=== PATIENT | male | born 1965 | race Caucasian/White ===

== ENCOUNTER 2024-10-02 07:29 | Inpatient (IN) | payer BC ==
[~2024-10-02] VITALS: Ht 170.2 cm; Wt 81.8 kg
[2024-10-02] VITALS (64 sets, daily range): BP systolic 31–144; BP diastolic 15–112; PULSE 90–130; RESP 23–51; TEMP 36–37.8; O2SAT 42–88
[2024-10-02] MEDS ORDERED: VANCOMYCIN 1G PREMIX 200 ML IV ONE (07:45)
[2024-10-02] MEDS: HEPARIN 5000 UNITS/ML VIAL IV ONE (07:58)
[2024-10-02] MEDS: SODIUM CHLORIDE 0.9% (SEPSIS BOLUS) IV ONE (08:05)
[2024-10-02] MEDS: PIPERACILLIN/TAZO 3.375G/50ML 50 ML IV ONE (08:05)
[2024-10-02] MEDS ORDERED: ONDANSETRON HCL 4MG TABLET PO ONE (08:15)
[2024-10-02 08:18] LABS: BASOPHILS % 0.4 % (0.0-2.0); HEMATOCRIT. 42.4 % (42.0-52.0); HEMOGLOBIN. 13.6 g/dL (14.0-18.0); LYMPHOCYTES % 16.2 % (20.0-50.0); MEAN CORPUSCULAR HEMOGLOBIN 29.2 pg (28.0-32.0); MEAN CORPUSCULAR HGB CONC 32.1 g/dL (31.0-37.0); MEAN PLATELET VOLUME 7.6 fl (7.4-10.4); MONOCYTES % 8.5 % (2.0-8.0); NEUTROPHILS % 73.9 % (40.0-76.0); PLATELET 293 x1000/uL (130-400); RED BLOOD CELL COUNT 4.67 mill/uL (4.7-6.1); RED CELL DISTRIBUTION WIDTH 14.5 % (11.6-14.6); WHITE BLOOD COUNT 13.8 x1000/uL (4.5-11.0)
[2024-10-02 08:42] LABS: CHLORIDE 109 mEq/L (98-107); POTASSIUM 3.8 mEq/L (3.5-5.1); SODIUM 139 mEq/L (136-145)
[2024-10-02 08:43] LABS: CALCIUM 8.7 mg/dL (8.7-10.4); CARBON DIOXIDE 19 mEq/L (21-32)
[2024-10-02] MEDS: ONDANSETRON HCL 4MG/2ML INJ IV ONE (08:44)
[2024-10-02 08:48] LABS: CREATININE 1.1 mg/dL (0.6-1.3); GLUCOSE 168 mg/dL (70-105); UREA NITROGEN BLOOD 15 mg/dL (9-23)
[2024-10-02 08:52] LABS: LACTIC ACID 3.6 mmol/L (0.4-2.0)
[2024-10-02 08:53] LABS: TROPONIN I HIGH SENSITIVITY 5765 ng/L (3.0-53)
[2024-10-02] MEDS ORDERED: ATROPINE SULFATE 1MG/10ML SYR ONE (08:55)
[2024-10-02] MEDS ORDERED: EPINEPHRINE 0.1MG/ML (1:10,000) 10ML SYR ONE (08:55)
[2024-10-02] MEDS ORDERED: IODIXANOL 320 MG/ML 150ML BOTTLE IV ONE (08:58)
[2024-10-02] MEDS ORDERED: LIDOCAINE HCL 1% 20ML VIAL ONE (08:58)
[2024-10-02] MEDS ORDERED: HEPARIN 1000 UNITS/ML 10ML ONE (08:58)
[2024-10-02] MEDS ORDERED: ACETAMINOPHEN 650MG/20.3ML UDC NG PRN (09:00)
[2024-10-02] MEDS ORDERED: FENTANYL CITRATE/PF 50MCG/ML 2ML VIAL ONE (09:19)
[2024-10-02] MEDS ORDERED: MIDAZOLAM HCL 2 MG/2 ML VIAL ONE ×2 (09:19→10:37)
[2024-10-02] MEDS ORDERED: NOREPINEPHRINE 8MG/250ML PMX 250 ML IV ONE ×2 (09:22→10:54)
[2024-10-02] MEDS ORDERED: PROPOFOL 10MG/ML 100ML 100 ML IV ONE (09:26)
[2024-10-02 09:32] LABS: INR 1.1; PROTHROMBIN TIME 11.9 sec (9.6-11.0)
[2024-10-02] MEDS ORDERED: FUROSEMIDE 40MG/4ML VIAL ONE (09:45)
[2024-10-02 09:51] LABS: PHOSPHORUS 3.3 mg/dL (2.5-4.9)
[2024-10-02 09:56] LABS: BG CARBOXYHEMOGLOBIN 0.3 % (0.5-1.5); BG DEOXYHEMOGLOBIN 35.1 % (0.0-5.0); BG OXYGEN SATURATION 64.8 % (94.0-98.0); BG OXYHEMOGLOBIN 64.6 % (94.0-98.0); BG PCO2 84.2 mmHg (35.0-48.0); BG PH < 6.686 (7.350-7.450); BG PO2 59.5 mmHg (83.0-108.0); BG SAMPLE SITE ALINE; BG TOTAL HEMOGLOBIN 14.4 g/dL (13.5-17.5)
[2024-10-02] MEDS ORDERED: SODIUM BICARBONATE 8.4% 50MEQ/50ML SYR IV ONE ×2 (09:56→10:03)
[2024-10-02] MEDS ORDERED: METHYLPREDNISOLONE SOD SUCC 125MG/2ML (ACT-O-VIAL) ONE (10:44)
[2024-10-02] MEDS ORDERED: TICAGRELOR 90 MG TABLET PO ONE (10:52)
[2024-10-02] MEDS ORDERED: ASPIRIN 325MG EC TABLET PO ONE (10:53)
[2024-10-02] MEDS ORDERED: ATROPINE SULFATE 1MG/10ML SYR IV PRN (11:30)
[2024-10-02] MEDS: PROPOFOL 10MG/ML 100ML 100 ML IV PRN (12:23)
[2024-10-02] MEDS: NOREPINEPHRINE 8MG/250ML PMX 250 ML IV PRN (12:35)
[2024-10-02 12:38] LABS: BG BASE EXCESS -13.5 mmol/L (-2.0-3.0); BG CARBOXYHEMOGLOBIN 0.4 % (0.5-1.5); BG DEOXYHEMOGLOBIN 14.7 % (0.0-5.0); BG FRACTION INSPIRED OXYGEN 100; BG HCO3 ACT 15.7 mmol/L (21.0-28.0); BG METHEMOGLOBIN 0.1 % (0.5-1.5); BG OXYGEN SATURATION 85.2 % (94.0-98.0); BG OXYHEMOGLOBIN 84.8 % (94.0-98.0); BG PCO2 48.6 mmHg (35.0-48.0); BG PH 7.127 (7.350-7.450); BG PO2 64.5 mmHg (83.0-108.0); BG SAMPLE SITE RIGHT RADIAL; BG TOTAL HEMOGLOBIN 15.5 g/dL (13.5-17.5); BG VENT MODE VENT - AC/PRVC
[2024-10-02 13:04] LABS: TROPONIN I HIGH SENSITIVITY 19410 ng/L (3.0-53)
[2024-10-02 13:47] LABS: CLARITY URINE CLOUDY (CLEAR); COLOR URINE DARK YELLOW (YELLOW); GLUCOSE URINE 1+ (NEGATIVE); KETONES URINE TRACE (NEGATIVE); LEUKOCYTE ESTERASE URINE TRACE (NEGATIVE); NITRITE URINE NEGATIVE (NEGATIVE); OCCULT BLOOD URINE 1+ (NEGATIVE); PH URINE 8.5 (4.5-8.0); PROTEIN URINE 4+ (NEGATIVE)
[2024-10-02] MEDS: HEPARIN 25,000 UNITS PREMIX 250 ML IV SCH (14:00)
[2024-10-02] MEDS ORDERED: IMPELLA PURGE SOLUTION MC SCH (14:00)
[2024-10-02] MEDS: SODIUM BICARBONATE 100 MEQ in SODIUM CHLORIDE 0.45% 900 ML IV SCH (14:02)
[2024-10-02 14:18] LABS: *AMPHETAMINES SCREEN URINE NEGATIVE (NEGATIVE); *BARBITURATES SCREEN URINE NEGATIVE (NEGATIVE); *BENZODIAZEPINES SCREEN URINE NEGATIVE (NEGATIVE); *COCAINE SCREEN URINE NEGATIVE (NEGATIVE); METHADONE URINE SCREEN NEGATIVE (NEGATIVE); OPIATES URINE SCREEN NEGATIVE (NEGATIVE); PHENCYCLIDINE URINE SCREEN NEGATIVE (NEGATIVE)
[2024-10-02 14:19] LABS: CANNABINOID URINE SCREEN NEGATIVE (NEGATIVE); ECSTASY MDMA SCREEN URINE NEGATIVE (NEGATIVE)
[2024-10-02 14:32] LABS: SQUAMOUS EPITHELIAL CELL URINE RARE /lpf (RARE/1+)
[2024-10-02 14:33] LABS: WBC URINE 0-2 /hpf (0-2)
[2024-10-02 14:36] LABS: BACTERIA URINE 1+
[2024-10-02 14:37] LABS: MUCUS URINE TRACE /lpf (NONE/TRACE)
[2024-10-02] MEDS: ACETAMINOPHEN 325MG TABLET PO PRN (14:55)
[2024-10-02 14:58] LABS: HEMATOCRIT 43.2 % (42.0-52.0); HEMOGLOBIN 14.4 g/dL (14.0-18.0); MEAN CORPUSCULAR HEMOGLOBIN 29.8 pg (28.0-32.0); MEAN CORPUSCULAR HGB CONC 33.2 g/dL (31.0-37.0); MEAN CORPUSCULAR VOLUME 89.6 fL (80.0-94.0); PLATELET 356 x1000/uL (130-400); RED BLOOD CELL COUNT 4.82 mill/uL (4.7-6.1); RED CELL DISTRIBUTION WIDTH 14.1 % (11.6-14.6); WHITE BLOOD COUNT 21.2 x1000/uL (4.5-11.0)
[2024-10-02] MEDS: PHENYLEPHRINE 100 MG in DEXT 5% WATER 240 ML IV PRN (14:58)
[2024-10-02 15:00] LABS: POTASSIUM 4.7 mEq/L (3.5-5.1)
[2024-10-02 15:01] LABS: CALCIUM 6.8 mg/dL (8.7-10.4)
[2024-10-02] MEDS: ALBUMIN HUMAN 25GM/100ML (25%) IV NR ×2 (15:12→18:13)
[2024-10-02 15:29] LABS: BG BASE EXCESS -12.1 mmol/L (-2.0-3.0); BG CARBOXYHEMOGLOBIN 0.3 % (0.5-1.5); BG FRACTION INSPIRED OXYGEN 100; BG HCO3 ACT 14.2 mmol/L (21.0-28.0); BG METHEMOGLOBIN 0.1 % (0.5-1.5); BG OXYHEMOGLOBIN 98.6 % (94.0-98.0); BG PCO2 34.3 mmHg (35.0-48.0); BG PH 7.236 (7.350-7.450); BG PO2 153.6 mmHg (83.0-108.0); BG SAMPLE SITE ALINE; BG VENT MODE VENT - AC
[2024-10-02 16:03] LABS: LACTATE DEHYDROGENASE 1381 IU/L (120-246)
[2024-10-02] MEDS: NOREPINEPHRINE 32 MG in DEXT 5% WATER 218 ML IV PRN (16:29)
[2024-10-02] MEDS: DOPAMINE 400MG/250ML PREMIX 250 ML IV PRN (16:40)
[2024-10-02] MEDS: SODIUM CHLORIDE 0.9% 500 ML IV ONE ×2 (18:12→19:43)
[2024-10-02 18:20] LABS: LACTIC ACID 6.1 mmol/L (0.4-2.0)
[2024-10-02] MEDS: FENTANYL 2500MCG/250ML PMX 250 ML IV PRN (18:56)
[2024-10-02] MEDS: TICAGRELOR 90 MG TABLET PO SCH (19:44)
[2024-10-02 20:27] LABS: BG BASE EXCESS -15.7 mmol/L (-2.0-3.0); BG CARBOXYHEMOGLOBIN 0.1 % (0.5-1.5); BG DEOXYHEMOGLOBIN 20.4 % (0.0-5.0); BG FRACTION INSPIRED OXYGEN 100; BG HCO3 ACT 14.4 mmol/L (21.0-28.0); BG METHEMOGLOBIN 0.3 % (0.5-1.5); BG OXYGEN SATURATION 79.5 % (94.0-98.0); BG OXYHEMOGLOBIN 79.2 % (94.0-98.0); BG PCO2 50.6 mmHg (35.0-48.0); BG PH 7.071 (7.350-7.450); BG PO2 55.5 mmHg (83.0-108.0); BG SAMPLE SITE ALINE; BG TOTAL HEMOGLOBIN 13.9 g/dL (13.5-17.5); BG VENT MODE PRVC/AC
[2024-10-02] MEDS ORDERED: TICAGRELOR 90 MG TABLET PO SCH (21:00)
[2024-10-02] MEDS: VASOPRESSIN 20 UNIT in SODIUM CHLORIDE 0.9% 99 ML IV PRN (21:27)
[2024-10-02] MEDS: PANTOPRAZOLE SODIUM 40 MG/VIAL IV SCH (21:27)
[2024-10-02 21:35] LABS: CHLORIDE 109 mEq/L (98-107); POTASSIUM 4.6 mEq/L (3.5-5.1); SODIUM 142 mEq/L (136-145)
[2024-10-02 21:36] LABS: CALCIUM 6.8 mg/dL (8.7-10.4); CARBON DIOXIDE 17 mEq/L (21-32)
[2024-10-02 21:41] LABS: CREATININE 2.6 mg/dL (0.6-1.3); GLUCOSE 249 mg/dL (70-105); UREA NITROGEN BLOOD 32 mg/dL (9-23)
[2024-10-02 21:42] LABS: BG BASE EXCESS -15.5 mmol/L (-2.0-3.0); BG CARBOXYHEMOGLOBIN 0.4 % (0.5-1.5); BG DEOXYHEMOGLOBIN 19.1 % (0.0-5.0); BG FRACTION INSPIRED OXYGEN 100; BG HCO3 ACT 14.3 mmol/L (21.0-28.0); BG OXYGEN SATURATION 80.8 % (94.0-98.0); BG OXYHEMOGLOBIN 80.5 % (94.0-98.0); BG PCO2 48.8 mmHg (35.0-48.0); BG PH 7.085 (7.350-7.450); BG PO2 54.6 mmHg (83.0-108.0); BG SAMPLE SITE ALINE; BG TOTAL HEMOGLOBIN 14.2 g/dL (13.5-17.5); BG VENT MODE PRVC/AC
[2024-10-02 21:43] LABS: PHOSPHORUS 6.7 mg/dL (2.5-4.9)
[2024-10-02] MEDS ORDERED: ZOLPIDEM TARTRATE 5MG TABLET PO PRN (22:15)
[2024-10-02] MEDS ORDERED: DEXTROSE 50% WATER 50ML SYRINGE IV PRN (22:15)
[2024-10-02] MEDS: BLOOD SUGAR DIAGNOSTIC STRIP TEST SCH (22:46)
[2024-10-03] VITALS (60 sets, daily range): BP systolic 36–100; BP diastolic 16–95; PULSE 118–136; RESP 16–38; TEMP 36.8–37.5; O2SAT 60–90
[2024-10-03 00:03] LABS: HEMATOCRIT. 39.7 % (42.0-52.0); MEAN CORPUSCULAR HEMOGLOBIN 29.5 pg (28.0-32.0); MEAN CORPUSCULAR HGB CONC 32.8 g/dL (31.0-37.0); MEAN CORPUSCULAR VOLUME 90.2 fL (80.0-94.0); MEAN PLATELET VOLUME 7.8 fl (7.4-10.4); PLATELET 238 x1000/uL (130-400); RED CELL DISTRIBUTION WIDTH 14.1 % (11.6-14.6); WHITE BLOOD COUNT 28.3 x1000/uL (4.5-11.0)
[2024-10-03 00:11] LABS: DIFFERENTIAL COMMENT 1
[2024-10-03 00:18] LABS: BG BASE EXCESS -18.2 mmol/L (-2.0-3.0); BG CARBOXYHEMOGLOBIN 0.3 % (0.5-1.5); BG DEOXYHEMOGLOBIN 26.3 % (0.0-5.0); BG FRACTION INSPIRED OXYGEN 100; BG HCO3 ACT 13.9 mmol/L (21.0-28.0); BG METHEMOGLOBIN 0.2 % (0.5-1.5); BG OXYGEN SATURATION 73.6 % (94.0-98.0); BG OXYHEMOGLOBIN 73.2 % (94.0-98.0); BG PCO2 60.1 mmHg (35.0-48.0); BG PH 6.981 (7.350-7.450); BG PO2 49.1 mmHg (83.0-108.0); BG SAMPLE SITE ALINE; BG TOTAL HEMOGLOBIN 14.3 g/dL (13.5-17.5); BG VENT MODE PRVC/AC
[2024-10-03] MEDS: BLOOD SUGAR DIAGNOSTIC STRIP TEST SCH (00:22)
[2024-10-03] MEDS: SODIUM BICARBONATE 8.4% 50MEQ/50ML SYR IV ONE (00:25)
[2024-10-03] MEDS ORDERED: MIDAZOLAM HCL 5 MG/5 ML VIAL IV NR (00:45)
[2024-10-03] MEDS: SODIUM BICARBONATE 8.4% 50MEQ/50ML SYR IV NR ×5 (00:52→13:18)
[2024-10-03] MEDS: MIDAZOLAM HCL 2 MG/2 ML VIAL IV NR (00:56)
[2024-10-03] MEDS: INSULIN LISPRO 100 UNITS/ML SUBCUT SCH (00:57)
[2024-10-03] MEDS ORDERED: METHYLPREDNISOLONE SOD SUCC 125MG/2ML (ACT-O-VIAL) IV NR (01:00)
[2024-10-03] MEDS: HYDROCORTISONE SOD SUCCINATE 100 MG/2 ML VIAL IV SCH (01:15)
[2024-10-03] MEDS: MIDAZOLAM 100MG/100ML PMX 100 ML IV PRN (01:36)
[2024-10-03 02:11] LABS: BG BASE EXCESS -18.9 mmol/L (-2.0-3.0); BG CARBOXYHEMOGLOBIN 0.3 % (0.5-1.5); BG FRACTION INSPIRED OXYGEN 100; BG HCO3 ACT 11.8 mmol/L (21.0-28.0); BG METHEMOGLOBIN 0.2 % (0.5-1.5); BG OXYGEN SATURATION 85.9 % (94.0-98.0); BG OXYHEMOGLOBIN 85.5 % (94.0-98.0); BG PCO2 46.6 mmHg (35.0-48.0); BG PH 7.022 (7.350-7.450); BG PO2 61.1 mmHg (83.0-108.0); BG SAMPLE SITE ALINE; BG TOTAL HEMOGLOBIN 14.3 g/dL (13.5-17.5); BG VENT MODE VENT - P/C
[2024-10-03] MEDS: SODIUM CHLORIDE 0.9% 1,000 ML IV SCH (03:11)
[2024-10-03] MEDS: ACETAMINOPHEN 650MG SUPP PR PRN (03:22)
[2024-10-03] MEDS: SODIUM BICARBONATE 100 MEQ in SODIUM CHLORIDE 0.45% 900 ML IV SCH (04:48)
[2024-10-03] MEDS ORDERED: METHYLPREDNISOLONE SOD SUCC 125MG/2ML (ACT-O-VIAL) IV SCH (06:00)
[2024-10-03] MEDS: PIPERACILLIN/TAZO 3.375G/50ML 50 ML IV SCH (06:06)
[2024-10-03] MEDS: SODIUM CHLORIDE 0.9% 3ML FLUSH IVF SCH (06:14)
[2024-10-03 06:52] LABS: BG BASE EXCESS -19.9 mmol/L (-2.0-3.0); BG CARBOXYHEMOGLOBIN 0.7 % (0.5-1.5); BG FRACTION INSPIRED OXYGEN 100; BG HCO3 ACT 10.4 mmol/L (21.0-28.0); BG METHEMOGLOBIN 0.4 % (0.5-1.5); BG OXYGEN SATURATION 89.9 % (94.0-98.0); BG OXYHEMOGLOBIN 88.9 % (94.0-98.0); BG PCO2 40.6 mmHg (35.0-48.0); BG PH 7.025 (7.350-7.450); BG SAMPLE SITE ALINE; BG VENT MODE PC/AC
[2024-10-03 06:59] LABS: CALCIUM 6.6 mg/dL (8.7-10.4)
[2024-10-03 07:01] LABS: HEMATOCRIT. 37.8 % (42.0-52.0); HEMOGLOBIN. 12.3 g/dL (14.0-18.0); MEAN CORPUSCULAR HEMOGLOBIN 29.6 pg (28.0-32.0); MEAN CORPUSCULAR HGB CONC 32.7 g/dL (31.0-37.0); MEAN CORPUSCULAR VOLUME 90.6 fL (80.0-94.0); MEAN PLATELET VOLUME 8.1 fl (7.4-10.4); PLATELET 144 x1000/uL (130-400); RED BLOOD CELL COUNT 4.17 mill/uL (4.7-6.1); RED CELL DISTRIBUTION WIDTH 14.2 % (11.6-14.6); WHITE BLOOD COUNT 25.5 x1000/uL (4.5-11.0)
[2024-10-03 07:09] LABS: PLATELET ESTIMATE NORMAL
[2024-10-03 07:09] LABS: DIFFERENTIAL COMMENT 1
[2024-10-03 07:18] LABS: LACTIC ACID 12.1 mmol/L (0.4-2.0)
[2024-10-03 07:37] LABS: CREATININE 3.9 mg/dL (0.6-1.3); POTASSIUM 6.6 mEq/L (3.5-5.1)
[2024-10-03] MEDS ORDERED: SODIUM POLYSTYRENE SULFONATE 15 G/60 ML BOT PO ONE (07:45)
[2024-10-03] MEDS: DEXTROSE 50% WATER 50ML SYRINGE IV NR (08:01)
[2024-10-03] MEDS: INSULIN REGULAR (HUMULIN R) 1000UNITS/10ML VIAL IV NR (08:02)
[2024-10-03] MEDS: SODIUM ZIRCONIUM CYCLOSILICATE 10GM/PACKET PO NR (08:02)
[2024-10-03] MEDS ORDERED: INSULIN LISPRO 100 UNITS/ML SUBCUT SCH (08:20)
[2024-10-03] MEDS: ASPIRIN 81MG EC TABLET PO SCH (08:21)
[2024-10-03] MEDS: PANTOPRAZOLE SODIUM 40 MG/VIAL IV SCH (08:21)
[2024-10-03 08:40] LABS: CREATINE KINASE 1122 IU/L (46-171)
[2024-10-03] MEDS ORDERED: PANTOPRAZOLE SODIUM 40 MG/VIAL IV SCH (09:00)
[2024-10-03] MEDS: VANCOMYCIN 750MG PMX (XELLIA) 150 ML IV NR (09:14)
[2024-10-03] MEDS: CALCIUM GLUCONATE 1GM PREMIX 100 ML IV NR (09:14)
[2024-10-03] MEDS: EPINEPHRINE 5 MG in SODIUM CHLORIDE 0.9% 245 ML IV PRN (09:15)
[2024-10-03] MEDS: ALBUMIN HUMAN 25GM/500ML (5%) IV SCH (09:53)
[2024-10-03 10:21] LABS: PLATELET ESTIMATE NORMAL
[2024-10-03 10:37] LABS: BG BASE EXCESS -20.3 mmol/L (-2.0-3.0); BG CARBOXYHEMOGLOBIN 0.2 % (0.5-1.5); BG DEOXYHEMOGLOBIN 27.3 % (0.0-5.0); BG FRACTION INSPIRED OXYGEN 100; BG METHEMOGLOBIN 0.6 % (0.5-1.5); BG OXYGEN SATURATION 72.5 % (94.0-98.0); BG OXYHEMOGLOBIN 71.9 % (94.0-98.0); BG PCO2 83.9 mmHg (35.0-48.0); BG PH 6.841 (7.350-7.450); BG PO2 51.6 mmHg (83.0-108.0); BG SAMPLE SITE ALINE; BG TOTAL HEMOGLOBIN 11.3 g/dL (13.5-17.5); BG VENT MODE VENT - P/C
[2024-10-03 11:48] LABS: ALBUMIN 3.3 g/dL (3.2-4.8); ASPARTATE AMINOTRANSFERASE > 1000 IU/L (<34); BILIRUBIN DIRECT 0.7 mg/dL (<=3.0); BILIRUBIN TOTAL 2.1 mg/dL (0.1-1.0); PROTEIN TOTAL 5.2 g/dL (6.0-8.3)
[2024-10-03 12:09] LABS: POTASSIUM 5.7 mEq/L (3.5-5.1)
[2024-10-03 12:45] LABS: BG BASE EXCESS -18.4 mmol/L (-2.0-3.0); BG CARBOXYHEMOGLOBIN 0.6 % (0.5-1.5); BG DEOXYHEMOGLOBIN 21.3 % (0.0-5.0); BG FRACTION INSPIRED OXYGEN 100; BG HCO3 ACT 12.2 mmol/L (21.0-28.0); BG METHEMOGLOBIN 1.1 % (0.5-1.5); BG OXYGEN SATURATION 78.3 % (94.0-98.0); BG PCO2 50.5 mmHg (35.0-48.0); BG PH 7.002 (7.350-7.450); BG PO2 51.2 mmHg (83.0-108.0); BG SAMPLE SITE ALINE; BG TOTAL HEMOGLOBIN 10.2 g/dL (13.5-17.5); BG VENT MODE VENT - PRVC
[2024-10-03] MEDS: SODIUM BICARBONATE 8.4% 50MEQ/50ML SYR IV SCH (13:30)
[2024-10-03 13:47] LABS: ALANINE AMINOTRANSFERASE 5733 IU/L (10-49)
[2024-10-03 14:30] LABS: BG BASE EXCESS -18.6 mmol/L (-2.0-3.0); BG CARBOXYHEMOGLOBIN 0.5 % (0.5-1.5); BG DEOXYHEMOGLOBIN 22.5 % (0.0-5.0); BG FRACTION INSPIRED OXYGEN 100; BG HCO3 ACT 11.1 mmol/L (21.0-28.0); BG METHEMOGLOBIN 0.9 % (0.5-1.5); BG OXYGEN SATURATION 77.2 % (94.0-98.0); BG OXYHEMOGLOBIN 76.1 % (94.0-98.0); BG PCO2 41.9 mmHg (35.0-48.0); BG PH 7.041 (7.350-7.450); BG PO2 51.5 mmHg (83.0-108.0); BG SAMPLE SITE ALINE; BG TOTAL HEMOGLOBIN 10.1 g/dL (13.5-17.5); BG VENT MODE VENT - P/C
[2024-10-03] MEDS ORDERED: PIPERACILLIN/TAZO 3.375G/50ML 50 ML IV SCH (21:00)
== END 2024-10-03 14:50 | disposition short-term general hospital (02) | DRG 215 ==
LOC: ER 07:29 → CVICU 09:02 → EDBEDREQSVC 09:04 → EDBEDREQ 09:04 → EDBEDREQTM 09:04 → ENRESERV 10:04
PROVIDERS: ADMIT Internal Medicine; ATTEND Internal Medicine
PROC: 02HA3RZ Insertion of Short-term External Heart Assist System into Heart, Percutaneous Approach (ICD-10-PCS; principal; 2024-10-02)
PROC: 5A0221D Assistance with Cardiac Output using Impeller Pump, Continuous (ICD-10-PCS; 2024-10-02)
PROC: 027035Z Dilation of Coronary Artery, One Artery with Two Drug-eluting Intraluminal Devices, Percutaneous Approach (ICD-10-PCS; 2024-10-02)
PROC: 4A023N8 Measurement of Cardiac Sampling and Pressure, Bilateral, Percutaneous Approach (ICD-10-PCS; 2024-10-02)
PROC: B211YZZ Fluoroscopy of Multiple Coronary Arteries using Other Contrast (ICD-10-PCS; 2024-10-02)
PROC: B41FYZZ Fluoroscopy of Right Lower Extremity Arteries using Other Contrast (ICD-10-PCS; 2024-10-02)
PROC: 5A12012 Performance of Cardiac Output, Single, Manual (ICD-10-PCS; 2024-10-02)
PROC: 5A1945Z Respiratory Ventilation, 24-96 Consecutive Hours (ICD-10-PCS; 2024-10-02)
PROC: 0BH17EZ Insertion of Endotracheal Airway into Trachea, Via Natural or Artificial Opening (ICD-10-PCS; 2024-10-02)
DX: I21.4 Non-ST elevation (NSTEMI) myocardial infarction (principal); J96.01 Acute respiratory failure with hypoxia; I46.9 Cardiac arrest, cause unspecified; R57.0 Cardiogenic shock; N17.0 Acute kidney failure with tubular necrosis; I50.41 Acute combined systolic (congestive) and diastolic (congestive) heart failure; J96.02 Acute respiratory failure with hypercapnia; G93.1 Anoxic brain damage, not elsewhere classified; E87.20 Acidosis, unspecified; Z20.822 Contact with and (suspected) exposure to COVID-19; E87.5 Hyperkalemia; I25.10 Atherosclerotic heart disease of native coronary artery without angina pectoris; N18.9 Chronic kidney disease, unspecified; Z79.899 Other long term (current) drug therapy
CPT/HCPCS: 31500; 33990; 36415; 36600; 71045; 74018; 80048; 80076; 80305; 81003; 82375; 82550; 82805; 82962; 83036; 83605; 83615; 83735; 84100; 84132; 84145; 84478; 84484; 85025; 85027; 85347; 87070; 87426; 92941; 92950; 93005; 93306; 93308; 93460; 93923; 94002; 94003; 94070; 94664; 96361; 96374; 96375; 98960; 99291; C1725; C1760; C1769; C1874; C1887; C1893; J0461; J0610; J1265; J1644; J1720; J1815; J1940; J2250; J2371; J2405; J2470; J2543; J2704; J2919; J3010; J3370; J3490; J7030; J7050; J7060; J7070; P9041; P9047; Q0162; Q9967; J8499